=== PATIENT | male | born 1995 | race Two or more races ===

== ENCOUNTER 2020-08-31 20:41 | Emergency (ER) | payer BC, OTHER ==
[~2020-08-31] VITALS: Ht 175.3 cm; Wt 72.6 kg
[2020-08-31 23:02] VITALS: BP 122/73
[2020-08-31] MEDS ORDERED: LIDOCAINE 1% HCL (LOCAL ANESTH.) INJ 20ML MDV ID ONE (23:15)
[2020-08-31] MEDS ORDERED: NEOMYCIN-BACITRACIN-POLYM UNITDOSE PKG TOP OINT TOP ONE (23:15)
[2020-09-01] MEDS ORDERED: MORPHINE SULF INJ 2 MG/ML SYRINGE 1ML IM ONE (01:30)
== END 2020-09-01 00:29 | disposition home or self-care (01) ==
LOC: ER 20:41
DX: S61.411A Laceration without foreign body of right hand, initial encounter (principal); F12.20 Cannabis dependence, uncomplicated; W26.8XXA Contact with other sharp object(s), not elsewhere classified, initial encounter; Y93.89 Activity, other specified; Y92.89 Other specified places as the place of occurrence of the external cause; Y99.8 Other external cause status
CPT/HCPCS: 12002; J2001